=== PATIENT | female | born 1970 | race Caucasian/White ===

== ENCOUNTER 2016-12-24 06:13 | Inpatient (IN) ==
[2016-12-24] MEDS ORDERED: Albuterol 2.5 MG/3 ML NEBULIZER IH ONE (06:32)
[2016-12-24] MEDS ORDERED: CeFAZolin Pre 2,000 MG/100 ML 2,000 MG/100 ML BAG IVPB ONE (06:32)
[2016-12-24] MEDS ORDERED: Lidocaine -MPF 1% 2 ML VIAL ID ONE (06:32)
[2016-12-24] MEDS ORDERED: *HR* Midazolam HCl 2 MG/2 ML VIAL ONE (06:45)
[2016-12-24] MEDS ORDERED: Lidocaine -MPF 2% 2 ML VIAL ONE (06:45)
[2016-12-24] MEDS ORDERED: *HR* Succinylcholine 200 MG/10 ML VIAL IVP ONE (06:45)
[2016-12-24] MEDS ORDERED: *HR* Propofol 200 MG/20 ML VIAL IVP ONE (06:45)
[2016-12-24] MEDS ORDERED: Dexamethasone 4 MG/ML VIAL ONE (06:45)
[2016-12-24] MEDS ORDERED: *HR* FentaNYL (PF) 100 MCG/2 ML VIAL ONE (06:45)
[2016-12-24] MEDS ORDERED: *HR* Remifentanil 1 MG VIAL IVP ONE (06:45)
[2016-12-24] MEDS ORDERED: Ondansetron 4 MG/2 ML VIAL ONE (06:45)
[2016-12-24] MEDS: Ringers Solution, Lactated 1,000 ML IVC SCH ×4 (06:47→23:16)
[2016-12-24] MEDS ORDERED: *HR* Meperidine 25 MG/ML SYRINGE IVP PRN (07:19)
[2016-12-24] MEDS ORDERED: *HR* Promethazine 25 MG/ML VIAL IVP PRN (07:19)
[2016-12-24] MEDS ORDERED: Ondansetron 4 MG/2 ML VIAL IVP ONE (07:19)
[2016-12-24] MEDS ORDERED: *HR* HYDROmorphone (PF) 1 MG/ML SYRINGE IVP PRN (07:19)
[2016-12-24] MEDS ORDERED: *HR* Labetalol 20 MG/4 ML SYRINGE IVP PRN (07:19)
[2016-12-24] MEDS ORDERED: Famotidine 20 MG/2 ML VIAL IVP ONE (07:21)
[2016-12-24] MEDS ORDERED: Acetaminophen IV 1,000 MG/100 ML INFUS..BTL IVPB ONE (07:21)
[2016-12-24] MEDS ORDERED: diazePAM 5 MG TABLET PO ONE (07:21)
--- NOTE | 2016-12-24 07:25 | Anesthesia Evaluation PreOp ---
Date of Encounter: 12/24/16 Time of Encounter: 07:10 - Past History Planned Operation: lumbar fusion/decompression Cardiac History: HTN, Hyperlipidemia, Arrhythmia (History of nonischemic cardiomyopathy, etiology unknown. EF 45-50%. 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 Any Significant HX, Other (migraine history) Other Medical History: GERD, Other (Factor 5 deficiency, history of clotting) Anesthesia History: Past Anesthesia, Problems (Profound post op nausea and vomiting) Alcohol Use: none Drug use: none Medications and Allergies Acetaminophen/Butalbital/Caffe [Fioricet] 1 each PO Q6HR PRN 09/05/15 [History] Buspirone HCl [Buspar] 15 mg PO BID 09/05/15 [History] Enoxaparin [Lovenox] 30 mg SQ Q12HR 09/05/15 [History] Fluticasone Propionate Nasal [Flonase] 1 spr NS DAILY PRN 09/05/15 [History] LORazepam [Ativan] 1 mg PO BID PRN 09/05/15 [History] Lisinopril [Zestril] 20 mg PO DAILY 09/05/15 [History] Ondansetron ODT [Zofran ODT] 4 mg SL Q8H PRN 09/05/15 [History] Pantoprazole Sodium [Protonix] 40 mg PO DAILY 09/05/15 [History] SUMAtriptan Succinate [Imitrex] 100 mg PO Q2H PRN 09/05/15 [History] Topiramate [Topamax] 200 mg PO HS 09/05/15 [History] Amitriptyline [Elavil] 10 mg PO HS 12/24/16 [History] Cyclobenzaprine HCl 5 mg PO Q8H PRN 12/24/16 [History] Ergocalciferol (VITAMIN D2) [Vitamin D2] 50,000 unit PO MO 12/24/16 [History] HYDROcodone/Acet 5/325 mg [Schuyler 5-325 mg] 1 tab PO Q6H PRN 12/24/16 [History] Metoprolol Succinate 100 mg PO HS 12/24/16 [History] Promethazine HCl 12.5 mg PO TID PRN 12/24/16 [History] Rizatriptan Benzoate [Maxalt Credit Consultant] 10 mg PO DAILY PRN 12/24/16 [History] Tizanidine HCl [Zanaflex] 2 mg PO TID PRN 12/24/16 [History] Allergies codeine Allergy (Verified 12/24/16 07:15) Gastrointestinal Upset - Meds/Allergy Pre-op Review Medications Reviewed: Yes Allergies Reviewed: Yes Beta Blockers on Current Med List: Yes (last dose sometime between 12 and 5 pm yesterday) Anesthesia Results - Labs Selected Entries 12/24/16 06:36 Temperature 98.1 F Pulse Rate 80 Respiratory Rate 18 Blood Pressure 154/93 O2 Sat by Pulse Oximetry 97 Laboratory Tests 12/14/16 12/14/16 12/14/16 12:35 12:35 12:35 WBC 9.3 Hgb 14.5 Hct 45.2 H Plt Count 235 PT 11.2 APTT 26.6 Sodium 138 Potassium 4.4 Chloride 107 Carbon Dioxide 26 BUN 17 Creatinine 0.86 - Imaging EKG: image reviewed (LBBB block) Anesthesia Exam Selected Entries 12/24/16 06:36 Temperature 98.1 F Pulse Rate 80 Respiratory Rate 18 Blood Pressure 154/93 O2 Sat by Pulse Oximetry 97 Height: 5'2 Weight: 80 NPO (# of Hours): over 8 hours - HEENT Pupil (Motor): Pupils equal Mallampati: III Teeth: Normal Oral Opening: Greater than 3 - MUSEUM REGISTRAR LOC: Oriented - Cardiac Rhythm: Regular Murmur: None - Pulmonary Breath Sounds: bilateral Clear Respiratory Effort: Symmetrical Anesthesia Assess/Plan ASA Score: 3 Modified [place] Scale for Level of Consciousness: Cooperative, oriented, and tranquil Anesthetic Plan: General Autologous Blood: Yes Monitoring Plan: Standard Monitors Recovery Plan: PACU
[2016-12-24] MEDS ORDERED: Scopolamine Patch 1.5 MG PATCH.TD72 TD ONE (07:31)
--- NOTE | 2016-12-24 07:39 | History & Physical Report ---
Date of Encounter: 12/24/16 Time of Encounter: 07:38 24 Hour HP Update - Instructions Instructions: If the History and Physical is less than 30 days old and was completed prior to A.M. admission and or procedure and has NOT been updated on calendar day of procedure please complete this update prior to performing procedure. - Update Patient reports changes in Medical Condition: No Changes in examination, assessment, or condition: No Changes in Medication: No Preop tests/diagnostics Reviewed: Yes Pre-Op MRSA Screen: Negative Surgery Remains Indicated: Yes Consent for Planned Operative Procedure(s) Verified: Yes - Pre-Operative Checklist Preoperative Checklist Indicated: No Prophylactic Antibiotic Ordered: Yes Home Medications Include Beta Madhu: Yes Beta Madhu Taken Today (Day of Surgery): No Beta Madhu Taken Yesterday (Day Prior to Surgery): Yes Is VTE Prophylaxis Indicated?: Yes
[2016-12-24] MEDS ORDERED: EPHEDrine 50 MG/ML VIAL ONE (11:47)
[2016-12-24] MEDS ORDERED: *HR* HYDROmorphone 2 MG/ML SYRINGE ONE (12:10)
--- NOTE | 2016-12-24 12:33 | Orthopedic Operative Note ---
Date of procedure: 12/24/16 Pre-op diagnosis: Spondylolisthesis, lumbar stenosis Post-op diagnosis: same Operation/Findings: Posterior lumbar interbody fusion L4-S1: The patient successfully underwent general endotracheal anesthesia. The patient was given antibiotics prior to the start of the procedure. Compression boots and stockings were used for deep vein thrombosis prophylaxis. A Severino catheter was placed. Leads for neuro monitoring were placed on the upper and lower extremities. This included the cranium. The neuro monitoring personnel confirmed there were satisfactory readings prior to the start of the procedure. The patient was turned prone on the Eduardo table. The back was prepped and draped in the usual sterile fashion. An incision was was marked and centered over the involved L4-S1 levels in the mid line. The incision was deepened through the lumbar fascia. Bovie cautery and Tony elevators were used to reflect the paraspinal musculature at the lateral extent of the transverse processes of the involved L4 , L5 , and S1 levels. Safia clamps were placed over the L4 and L5 spinous processes. An intraoperative lateral fluoroscopy graft was obtained. A conversation was held between the surgeon and radiologist and both confirmed we had the correct operative levels. We then placed pedicle screws in standard fashion with the aid of fluoroscopy and anatomic landmarks. Briefly a starter awl was used. A gearshift was subsequently used to enter the commercial drone pilot hole via a transpedicular route into the vertebral body. The commercial drone pilot hole was tapped with an undersized instrument, and subsequently six 6.5 x 40 mm pedicle screws were placed bilaterally at the indicated L4, L5, and S1 levels. The screws were tested with the aid of the neurologic monitoring staff via pedicle screw stimulation. All reading suggested there was no significant cortical wall breech. The screws were also evaluated fluoro- graphically and appeared to be in satisfactory position. We then turned our attention to the decompression portion of the procedure. We removed the supraspinous and interspinous ligaments and subsequently the insertion of the ligamentum flavum on the undersurface of the proximal L5 lamina was dislodged with a curette. We then removed the ligamentum flavum as well as undercut the L5-S1 facets at this level to decompress the lateral recesses. We also performed a L5 laminectomy. After the decompression, which was over and above that which was required to place the interbody graft, the foramen and traversing roots at this level were found to be free and patent. We also took part of the medial facet in order to aid in the decompression. We then protected the neural elements including the thecal sac and traversing nerve root on the right with a dural retractor. We made an annulotomy into the L5-S1 disc space and then removed entire disc material using Pituitary instruments. We trialed various size grafts after the endplates were prepared for graft insertion. A 10 x 26 enter body graft fit well within the L5-S1 disc space. We obtained some bone from the right posterior superior iliac spine through us a separate incision and combined with this with the bone which we had saved from the laminectomy portion of the procedure. This autograft bone was first placed in the anterior portion of the L5-S1 disc space and additional bone was placed within the interbody graft spacer. We then placed the interbody graft spacer obliquely across the L5-S1 disc space towards the midline while protecting the neural elements with a root retractor. When the graft was found to be in satisfactory position the time piece repairer was removed. We moved proximally to the L4-5 level and performed a L4 laminectomy, which included undercutting of the L4-5 facets to decompress the lateral recesses. The hypertrophied ligamentum flavum was removed as well. We then copiously irrigated the wound. We then decorticated the transverse processes of L4, L5, and the proximal portion of S1 as well as the L4-5 and L5- S1 facet joints of the involved levels to aid in the posterolateral fusion. We placed autograft bone in the lateral gutters over these regions. We then placed rods within the screw heads of the involved L4-S1 levels and first locked the distal screws and then subsequently locked the proximal screws so as to improve and reduce the spondylolisthesis previously seen. We then closed the wound in layers with 1 Vicryl for the fascia, 2-0 Vicryl. Subcutaneous tissue, and Dermabond was used for skin closure. Sterile dressings were placed over the wound. The patient was turned supine on a hospital bed and extubated. All sponge instruments and needle counts were correct at the end of the procedure. The patient tolerated the procedure well without complications. Anesthesia: GETA Surgeon: Toni Mendoza Jr Estimated blood loss (cc): 200 Condition: stable Disposition: PACU
[2016-12-24] MEDS ORDERED: tiZANidine 4 MG TABLET PO PRN (13:30)
[2016-12-24] MEDS ORDERED: Acetaminophen/Butalbital/CaffeineTABLET PO PRN (13:30)
[2016-12-24] MEDS ORDERED: *HR* Morphine 2 MG/ML SYRINGE IVP PRN (13:30)
[2016-12-24] MEDS ORDERED: (Rizatriptan Benzoate [Maxalt Mlt] 10 MG) PO PRN (13:30)
[2016-12-24] MEDS ORDERED: Ondansetron ODT 4 MG TAB.RAPDIS SL PRN (13:30)
[2016-12-24] MEDS ORDERED: Fluticasone Propionate Nasal 50 MCG/SPRAY BOTTLE NS PRN (13:30)
[2016-12-24] MEDS ORDERED: SUMAtriptan succinate 50 MG TABLET PO PRN (13:30)
[2016-12-24] MEDS ORDERED: Naloxone 0.4 MG/ML INJ IVP PRN (13:30)
--- NOTE | 2016-12-24 13:31 | Anesthesia Evaluation Post Op ---
Date of Encounter: 12/24/16 Time of Encounter: 13:31 - Vital Signs Vital Signs: Last Vital Signs Temp 98.0 F 12/24/16 13:28 Pulse 80 12/24/16 13:28 Resp 16 12/24/16 13:28 BP 154/76 12/24/16 13:28 Pulse Ox 95 12/24/16 13:28 - Lungs Lungs: Clear Ascult./Percussion - Airway Airway: Non-obstructed - Cardiovascular Regular Rate - Mental Status Mental Status: Alert & Oriented, Answers Appropriately - Pain Pain Scale: 5 - Nausea Vomiting Nausea Vomiting: Responds to treatment with IV Meds - Hydration Hydration: NPO - Discharge PostOp Status: Transfer Patient to floor
[2016-12-24] MEDS: *HR* OxyCODONE Immed Rel 5 MG TABLET PO PRN ×3 (14:06→22:08)
[2016-12-24] MEDS ORDERED: *HR* OxyCODONE Immed Rel 5 MG TABLET PO SCH (16:00)
[2016-12-24] MEDS: ceFAZolin 2,000 MG in D5% in Water 100 ML IVPB SCH (16:16)
[2016-12-24] MEDS ORDERED: *HR* Enoxaparin 30 MG/0.3 ML SYRINGE SQ SCH (18:00)
[2016-12-24] MEDS: *HR* Morphine 2 MG/ML SYRINGE IVP PRN ×3 (19:04→23:15)
[2016-12-24] MEDS: Topiramate 100 MG TABLET PO SCH (21:09)
[2016-12-24] MEDS: Metoprolol XL (24 HR) Succ 50 MG TAB.ER.24H PO SCH (21:16)
[2016-12-24] MEDS: Famotidine 20 MG TABLET PO SCH (21:17)
[2016-12-25] MEDS: *HR* Morphine 2 MG/ML SYRINGE IVP PRN ×7 (01:41→21:10)
[2016-12-25] MEDS: *HR* OxyCODONE Immed Rel 5 MG TABLET PO PRN ×4 (05:11→19:43)
[2016-12-25] MEDS: *HR* Enoxaparin 30 MG/0.3 ML SYRINGE SQ SCH ×2 (05:12→18:09)
[2016-12-25] MEDS: *HR* LORazepam 1 MG TABLET PO PRN (06:32)
[2016-12-25] MEDS: ceFAZolin 2,000 MG in D5% in Water 100 ML IVPB SCH (06:39)
[2016-12-25 06:50] LABS: Basophils # 0.1 K/mcL (0.0-0.2); Basophils % 0.5 %; Eosinophils # 0.2 K/mcL (0.0-0.6); Eosinophils % 1.8 %; Hematocrit 33.3 % (35.3-44.9); Hemoglobin 10.7 g/dL (11.5-15.4); Immature Granulocytes % 0.2 % (0-4); Mean Corpuscular HGB Conc 32.1 g/dL (31.6-35.5); Mean Corpuscular Hemoglobin 28.9 pg (28.0-33.3); Mean Platelet Volume 9.7 fL (9.4-12.4); Monocytes # 0.7 K/mcL (0.0-1.3); Monocytes % 8.1 %; Neutrophils # 7.1 K/mcL (1.6-8.9); Platelet Count 181 K/mcL (140-400); Red Cell Distribution Width 13.1 % (11.5-14.5); Segmented Neutrophils % 78.4 %
[2016-12-25 06:59] LABS: BUN/Creatinine Ratio 10 (6-26); Blood Urea Nitrogen 8 mg/dL (7-20); Calcium 8.4 mg/dL (8.6-10.8); Carbon Dioxide 29 mEq/L (19-29); Chloride 104 mEq/L (98-109); Glucose 120 mg/dL (70-99); Osmolality,Calculated 282 (280-300); Potassium 3.7 mEq/L (3.5-4.5); Sodium 136 mEq/L (136-145); eGFR For African Americans > 60 (> 60); eGFR For Non-African Americans > 60 (> 60)
[2016-12-25] MEDS ORDERED: diazePAM 5 MG TABLET PO PRN (07:13)
[2016-12-25] MEDS: Ringers Solution, Lactated 1,000 ML IVC SCH ×2 (08:29→18:21)
[2016-12-25] MEDS: Lisinopril 20 MG TABLET PO SCH (08:29)
[2016-12-25] MEDS: Famotidine 20 MG TABLET PO SCH ×2 (08:29→19:43)
[2016-12-25] MEDS: Ondansetron 4 MG/2 ML VIAL IVP PRN ×2 (11:45→18:30)
[2016-12-25] MEDS: Metoprolol XL (24 HR) Succ 50 MG TAB.ER.24H PO SCH (19:43)
[2016-12-25] MEDS: Topiramate 100 MG TABLET PO SCH (19:43)
[2016-12-26] MEDS: *HR* Morphine 2 MG/ML SYRINGE IVP PRN (02:42)
[2016-12-26] MEDS: *HR* OxyCODONE Immed Rel 5 MG TABLET PO PRN ×6 (04:01→21:13)
[2016-12-26] MEDS: *HR* Enoxaparin 30 MG/0.3 ML SYRINGE SQ SCH ×2 (06:23→16:50)
--- NOTE | 2016-12-26 07:47 | Spine Progress Note ---
Date of Encounter: 12/25/16 Time of Encounter: 13:10 Subjective Principal diagnosis: Spondylolisthesis, lumbar stenosis Interval history: The patient is without complaints except back pain. Afebrile vital signs are stable. Incision is clean dry and intact. Neurovascularly intact with regard to bilateral lower extremities. Fires all upper and lower extremity motor groups. Assessment :stable. Plan mobilize ,continue analgesics, discharge planning. Objective Vital signs: Vital Signs Temp Pulse Resp BP Pulse Ox 12/26/16 06:50 97.9 F 80 16 109/64 96 12/26/16 00:32 97.5 F L 94 16 115/72 99 12/25/16 21:17 97.7 F 110 19 116/73 96 12/25/16 15:42 98.1 F 108 18 133/87 96 12/25/16 11:54 100 15 120/82 12/25/16 10:40 98.8 F 92 14 126/84 98 Intake and Output 12/25/16 12/25/16 12/26/16 15:59 23:59 07:59 Intake Total 1000 / 1000 1060 / 1060 Balance 1000 / 1000 1060 / 1060 Intake: IV Fluids 1000 / 1000 1000 / 1000 Lactated Ringers 1,000 ML 1000 / 1000 1000 / 1000 @ 100 mls/hr IVC .Q10H AZUCENA Rx#:[id number] Oral 60 / 60 Other: Meal Breakfast Percent of Meal Consumed 0% # Voids 1 1 2 - Labs CBC & BMP: 12/25/16 06:12 12/25/16 06:12 Labs: Abnormal lab results RBC 3.70 M/mcL (3.82-4.97) L 12/25/16 06:12 Hgb 10.7 g/dL (11.5-15.4) L 12/25/16 06:12 Hct 33.3 % (35.3-44.9) L 12/25/16 06:12 Glucose 120 mg/dL (70-99) H 12/25/16 06:12 Calcium 8.4 mg/dL (8.6-10.8) L 12/25/16 06:12 Consult Discharge Plan - Plan Referrals: Dannie Ryan MD [Primary Care Provider] - 04/03/17 9:00 am
[2016-12-26] MEDS: Famotidine 20 MG TABLET PO SCH ×2 (08:07→19:46)
[2016-12-26] MEDS: Lisinopril 20 MG TABLET PO SCH (08:07)
--- NOTE | 2016-12-26 12:16 | Spine Progress Note ---
Date of Encounter: 12/26/16 Time of Encounter: 12:15 Subjective Principal diagnosis: Spondylolisthesis, lumbar stenosis Interval history: The patient is without complaints except back pain. Afebrile vital signs are stable. Incision is clean dry and intact. Neurovascularly intact with regard to bilateral lower extremities. Fires all upper and lower extremity motor groups. Assessment :stable. Plan mobilize ,continue analgesics, discharge planning, mobilizing poorly so a candidate for rehabilitation. Objective Vital signs: Vital Signs Temp Pulse Resp BP Pulse Ox 12/26/16 12:08 98.0 F 71 16 99/65 95 12/26/16 06:50 97.9 F 80 16 109/64 96 12/26/16 00:32 97.5 F L 94 16 115/72 99 12/25/16 21:17 97.7 F 110 19 116/73 96 12/25/16 15:42 98.1 F 108 18 133/87 96 Intake and Output 12/25/16 12/26/16 12/26/16 23:59 07:59 15:59 Intake Total 1060 / 1060 1240 / 1240 Balance 1060 / 1060 1240 / 1240 Intake: IV Fluids 1000 / 1000 1000 / 1000 Lactated Ringers 1,000 ML 1000 / 1000 1000 / 1000 @ 100 mls/hr IVC .Q10H AZUCENA Rx#:[id number] Oral 60 / 60 240 / 240 Other: Meal Breakfast Percent of Meal Consumed 50% # Voids 1 2 1 - Labs CBC & BMP: 12/25/16 06:12 12/25/16 06:12 Labs: Abnormal lab results RBC 3.70 M/mcL (3.82-4.97) L 12/25/16 06:12 Hgb 10.7 g/dL (11.5-15.4) L 12/25/16 06:12 Hct 33.3 % (35.3-44.9) L 12/25/16 06:12 Glucose 120 mg/dL (70-99) H 12/25/16 06:12 Calcium 8.4 mg/dL (8.6-10.8) L 12/25/16 06:12 Consult Discharge Plan - Plan Referrals: Dannie Ryan MD [Primary Care Provider] - 04/03/17 9:00 am
[2016-12-26] MEDS: Metoprolol XL (24 HR) Succ 50 MG TAB.ER.24H PO SCH (19:46)
[2016-12-26] MEDS: Topiramate 100 MG TABLET PO SCH (19:46)
[2016-12-26] MEDS: *HR* LORazepam 1 MG TABLET PO PRN ×2 (19:46)
[2016-12-27] MEDS: *HR* OxyCODONE Immed Rel 5 MG TABLET PO PRN ×3 (02:35→13:49)
[2016-12-27] MEDS: *HR* Enoxaparin 30 MG/0.3 ML SYRINGE SQ SCH (06:32)
[2016-12-27] MEDS: Lisinopril 20 MG TABLET PO SCH (09:03)
[2016-12-27] MEDS: Famotidine 20 MG TABLET PO SCH (09:05)
--- NOTE | 2016-12-27 15:36 | Discharge Summary ---
Date of Encounter: 12/27/16 Time of Encounter: 15:33 - Discharge Diagnosis (1) Spondylolisthesis Priority: Primary Status: Chronic Qualifiers: Spinal region: lumbar Qualified Code(s): M43.16 - Spondylolisthesis, lumbar region (2) Lumbar stenosis Priority: Secondary Status: Chronic - Discharge Medications Prescriptions: OxyCODONE Immed Rel [Roxicodone 5 MG] 5 mg PO Q4HR PRN #60 tab PRN Reason: Severe Pain Cyclobenzaprine [Flexeril] 10 mg PO Q8H PRN #60 tab PRN Reason: Muscle Spasm Home Medications: Acetaminophen/Butalbital/Caffe [Fioricet] 1 each PO Q6HR PRN 09/05/15 [History] Buspirone HCl [Buspar] 15 mg PO DAILY 09/05/15 [History] Enoxaparin [Lovenox] 30 mg SQ Q12HR 09/05/15 [History] Fluticasone Propionate Nasal [Flonase] 1 spr NS DAILY PRN 09/05/15 [History] LORazepam [Ativan] 1 mg PO BID PRN 09/05/15 [History] Lisinopril [Zestril] 20 mg PO DAILY 09/05/15 [History] Ondansetron ODT [Zofran ODT] 4 mg SL Q8H PRN 09/05/15 [History] Pantoprazole Sodium [Protonix] 40 mg PO DAILY 09/05/15 [History] SUMAtriptan Succinate [Imitrex] 100 mg PO Q2H PRN 09/05/15 [History] Topiramate [Topamax] 200 mg PO HS 09/05/15 [History] Amitriptyline [Elavil] 10 mg PO HS 12/24/16 [History] Cyclobenzaprine HCl 5 mg PO Q8H PRN 12/24/16 [History] Ergocalciferol (VITAMIN D2) [Vitamin D2] 50,000 unit PO MO 12/24/16 [History] HYDROcodone/Acet 5/325 mg [Gerton 5-325 mg] 1 tab PO Q6H PRN 12/24/16 [History] Metoprolol Succinate 100 mg PO HS 12/24/16 [History] Promethazine HCl 12.5 mg PO TID PRN 12/24/16 [History] Ranitidine HCl [Zantac] 150 mg PO BID 12/24/16 [History] Rizatriptan Benzoate [Maxalt Motion Picture Commentator] 10 mg PO DAILY PRN 12/24/16 [History] Tizanidine HCl [Zanaflex] 2 mg PO BID PRN 12/24/16 [History] Cyclobenzaprine [Flexeril] 10 mg PO Q8H PRN #60 tab 12/27/16 [Rx] OxyCODONE Immed Rel [Roxicodone 5 MG] 5 mg PO Q4HR PRN #60 tab 12/27/16 [Rx] Allergies/Adverse Reactions: Allergies codeine Allergy (Verified 12/24/16 07:15) Gastrointestinal Upset - Impressions ITS Impressions Lumbar Spine X-Ray 12/24/16 09:20 IMPRESSION: Postop changes without complicating feature. D/ / Marcus Montano MD / Marcus Montano MD Interpreting Provider: Marcus Montano MD Lumbar Spine X-Ray 12/27/16 12:35 IMPRESSION: Postoperative changes related to recent fusion procedure at the L4 through S1 levels as described above. D/ / 12/27/2016 08:45:56 Anand Reveles MD / [email or web address] Interpreting Provider: Anand Reveles MD Date of admission: 12/24/16 13:32 Primary care physician: Dannie Ryan MD Consults: 12/24/16 13:30 Consult to Occupational Therapy [CONS] Routine Comment: Evaluate, develop and implement POC Reason for Consult: Postoperative Consult to Physical Therapy [CONS] Routine Comment: Evaluate, develop and implement POC Reason for Consult: Postoperative Consult to Spine Navigator [CONS] [CONS] Routine 12/27/16 10:21 Consult to Admissions Clinician [CONS] Routine Reason for SW Consult: DISCHARGE PLANNING - Patient Status Disposition: Home Health Service Condition: Good Functional capacity at discharge: uses cane/walker Overall status at discharge: patient is progressing back to baseline - Discharge Instructions Follow Up With: Dannie Ryan MD [Primary Care Provider] - 04/03/17 9:00 am - Diet and Activity Activity: as per physical therapy Diet: advance to your usual diet - Hospital Course Hospital course: Ms. Lewis is a 46 year old female The patient had an uneventful postoperative course. Progressed from intravenous analgesic needs to oral analgesic needs only. Remained neurovascularly intact and mobilized satisfactorily. All intraoperative and/or postoperative radiographic studies were satisfactory. Patient is discharged with plan for rehabilitation and follow-up in 2 weeks post discharge on analgesic medication and patient's home medications. - Time Spent with Patient Total time spent providing and/or coordinating discharge services: - VTE Documentation of Mechanical Device: Intermittent pneumatic compression device
[2016-12-27 16:38] VITALS: BP 126/80
== END 2016-12-24 13:40 | disposition home health service (06) | DRG 304 ==
LOC: SAMDAY 06:13 → 3NENU 13:32
PROVIDERS: ADMIT Orthopaedic Surgery Orthopaedic Surgery of the Spine; ATTEND Orthopaedic Surgery Orthopaedic Surgery of the Spine